=== PATIENT | male | born 1955 | race African-American/Black ===

== ENCOUNTER 2020-03-18 17:08 | Emergency (ER) | payer MEDICARE, OTHER ==
[~2020-03-18] VITALS: Ht 175.3 cm; Wt 90.9 kg
[~2020-03-18 17:08] MED LIST: ALLO100T PO; ASPI-482 PO; BYSTOLIC10 MG PO; CLON0.2T PO; FENO145T3 PO; FURO-68 PO; FURO-69 PO; LORA10TA68 PO; LOSA100T14 PO; PRAV20TA2 PO; TAMS0.4C97 PO
--- NOTE | 2020-03-18 19:08 | PHYS DOC ---
Past Medical History Past Medical History: High Cholesterol, Hypertension Additional Past Medical Histor: GOUT, SEASONAL ALLERGIES Past Surgical History: Hip Replacement, Knee Replacement Smoking Status: Current Every Day Smoker Alcohol Use: Occasionally General Adult EDM: Chief Complaint: HYPERTENSION HPI: HPI: Patient is a 64 year old male who comes to the ER today complaining of high blood pressure at home. Patient states he has a long history of high blood pressure, but has not been taken his blood pressure lately at home because his machine was broken, bought a new blood pressure cuff and noticed that it was 223/113 in the left arm, then told his who became very alarmed and brought him straight to the emergency department. Patient denies any visual changes, any headaches or dizziness or syncopal episodes. Patient denies any cough shortness of breath chest pain or peripheral swelling. Patient denies any nasal congestion, abdominal pain, nausea, vomiting, diarrhea, or constipation. Patient denies any problems urinating. Denies any back pain or pain in his joints, rashes, swelling of his glands. Patient denies any depressions or anxieties homicidal or suicidal ideation. Patient denies any recent COVID-19 exposure, does not have any COVID-19 virus concerns and does not wish to be tested today. Review of Systems: Review of Systems: Constitutional: Denies fever or chills. Complains of high blood pressure without symptoms. Denies exposure to COVID-19 virus. Eyes: Denies change in visual acuity. HENT: Denies nasal congestion or sore throat. Respiratory: Denies cough or shortness of breath. Cardiovascular: Denies chest pain or edema. GI: Denies abdominal pain, nausea, vomiting, bloody stools or diarrhea. : Denies dysuria. Musculoskeletal: Denies back pain or joint pain. Integument: Denies rash. Neurologic: Denies headache, focal weakness or sensory changes. Lymphatic: Denies swollen glands. Psychiatric: Denies depression or anxiety. Heart Score: Risk Factors: Risk Factors: DM, Current or recent (<one month) smoker, HTN, HLP, family history of CAD, obesity. Risk Scores: Score 0 - 3: 2.5% MACE over next 6 weeks - Discharge Home Score 4 - 6: 20.3% MACE over next 6 weeks - Admit for Clinical Observation Score 7 - 10: 72.7% MACE over next 6 weeks - Early Invasive Strategies Allergies: Allergies: Allergies Coded Allergies Type Severity Reaction Last Updated Verified No Known Drug Allergies 09/10/13 No Physical Exam: PE: Constitutional: Well developed, well nourished, no acute distress, non-toxic appearance. HENT: Normocephalic, atraumatic, bilateral external ears normal, oropharynx moist, no oral exudates, nose normal. Eyes: PERRLA, EOMI, conjunctiva normal, no discharge. Pupils were 3 mm. Neck: Normal range of motion, no tenderness, supple, no stridor. Cardiovascular:Heart rate regular rhythm, no murmur, heart sounds were S1-S2, no abnormalities per auscultation Lungs & Thorax: Bilateral breath sounds clear to auscultation all lung gill. Abdomen: Bowel sounds normal, soft, no tenderness, no masses, no pulsatile masses. Skin: Warm, dry, no erythema, no rash. Back: No tenderness, no CVA tenderness. Extremities: No tenderness, no cyanosis, no clubbing, ROM intact, no edema. Neurologic: Alert and oriented X 3, normal motor function, normal sensory function, no focal deficits noted. Psychologic: Affect normal, judgement normal, mood normal. Current Patient Data: Vital Signs: Vital Signs Date Time Temp Pulse Resp B/P (MAP) Pulse Ox O2 Delivery O2 Flow Rate FiO2 03/18/20 17:17 98.1 72 18 154/90 (111) 98 Room Air 98.1 EKG: EKG: [] Radiology/Procedures: Radiology/Procedures: [] Course & Med Decision Making: Course & Med Decision Making Pertinent Labs and Imaging studies reviewed. (See chart for details) 64-year-old patient with a long history of hypertension presented to the emergency department today with complaints of a blood pressure of 223/113 from his left arm at home. Patient feared he might have a stroke, did not have any signs and symptoms of a stroke, patient's blood pressure in the emergency department was 205/105. Patient was given 0.1 mg of clonidine p.o. Approximately 45 minutes afterwards his pressure had decreased to 200/95. Discussed with patient discharging to home and continuing his home blood pressure medications and calling his physician in the morning to see if his primary care physician would want to change his blood pressure medicine regimen. Patient was amenable to this, gave verbal understanding of home care instru ctions stated he would call his physician in the morning when he wakes up. Patient had no further questions or concerns. Patient discharged home. Dragon Disclaimer: Dragon Disclaimer: This electronic medical record was generated, in whole or in part, using a voice recognition dictation system. Departure Departure Impression: Primary Impression: Hypertension Qualified Codes: I10 - Essential (primary) hypertension Disposition: HOME, SELF-CARE Condition: GOOD Referrals: DIO CHINO MD (PCP) Patient Instructions: Hypertension Additional Instructions: Please call your doctor in the morning to discuss your blood pressure medication regimen, return to the emergency department for worsening symptoms or further concerns. Justicifation of Admission Dx: Justifications for Admission: Justification of Admission Dx: N/A ITA MATTSON APRN Mar 18, 2020 19:08
[2020-03-18] MEDS ORDERED: cloNIDine HCL 0.1 MG TABLET PO ONE (19:15)
[2020-03-18 20:30] VITALS: BP 229/106
--- NOTE | 2020-03-19 03:35 | EKG ---
[facility] [address] [place] [id number] Test Date: 2020-03-18 Test Time: 17:18:17 Pat Name: PORFIRIO POLK Department: Room: Gender: M Bark Tanner: : 1955 Requested By: ITA MATTSON Order Number: [id number] Reading MD: Measurements Intervals [place] Rate: 61 P: 41 [place]: 174 QRS: -61 QRSD: 126 T: 71 QT: 432 QTc: 436 Interpretive Statements SINUS RHYTHM ATRIAL PREMATURE COMPLEX(ES) LEFT ATRIAL ABNORMALITY RIGHT BUNDLE BRANCH BLOCK ABNORMAL ECG RI6.01 No previous ECG available for comparison
== END 2020-03-18 21:27 | disposition home or self-care (01) ==
LOC: ER 17:08
DX: I10 Essential (primary) hypertension (principal); E78.00 Pure hypercholesterolemia, unspecified; F17.200 Nicotine dependence, unspecified, uncomplicated; Z98.890 Other specified postprocedural states
CPT/HCPCS: 93005; 99285